=== PATIENT | female | born 1990 | race Caucasian/White ===

== ENCOUNTER 2025-03-28 05:52 | Observation (INO) | payer OTHER, SELFPAY ==
[2025-03-27 17:59] VITALS: BP 130/92
[2025-03-27 18:18] LABS: % Basophils 0.6 % (0-2); % Eosinophils 2.3 % (0-6); % Immature Granulocytes 0.1 % (0-0.5); % Lymphocytes 31.3 % (20.5-51.1); % Monocytes 6.6 % (1.7-9.3); % Neutrophils 59.1 % (42.2-75.2); Absolute Basophils 0.1 10^3/uL (0-0.2); Absolute Eosinophils 0.2 10^3/uL (0-0.7); Absolute Lymphocytes 2.5 10^3/uL (1.2-3.4); Absolute Monocytes 0.5 10^3/uL (0.1-0.6); Absolute Neutrophils 4.7 10^3/uL (1.4-6.5); Hemoglobin 13.6 g/dL (12.0-16.0); Mean Corp Hgb Conc. 34.9 g/dL (33.0-37.0); Mean Corpuscular Hgb 30.4 pg (27.0-31.0); Mean Corpuscular Volume 87.1 fL (81.0-99.0); Mean Platelet Volume 9.2 fL (7.4-10.4); Nucleated Red Blood Cells % 0 %; Platelet Count 291 10^3/uL (130-400); Red Blood Cell Count 4.48 10^6/uL (4.20-5.40); Red Cell Dist. Width 12.9 % (11.5-14.5)
[2025-03-27 18:36] LABS: HCG, Serum Qualitative Screen Negative
[2025-03-27 18:41] LABS: ALT (SGPT) 12 U/L (0-35); AST (SGOT) 24 U/L (14-36); Alkaline Phosphatase 32 U/L (38-126); Blood Urea Nitrogen 15 mg/dl (7-17); Calcium 9.5 mg/dl (8.4-10.2); Carbon Dioxide 24 mmol/L (22-30); Chloride 106 mmol/L (98-107); Glucose 105 mg/dl (70-99); Potassium 4.1 mmol/L (3.5-5.1); Sodium 138 mmol/L (135-145); Total Bilirubin 0.7 mg/dl (0.2-1.3); Total Protein 7.9 g/dl (6.3-8.2); eGFR > 60.00
[2025-03-27 19:10] LABS: TSH Reflex To Free T4 2.52 uIU/ml (0.47-4.68)
[2025-03-27 19:51] VITALS: BP 128/88
[2025-03-27 21:37] VITALS: BP 127/96
[2025-03-27 22:22] VITALS: BP 115/84
[2025-03-27] MEDS: NSS 1000 IV (23:59)
[2025-03-28] VITALS (15 sets, daily range): BP systolic 103–129; BP diastolic 76–96; PULSE 72–100; BMI 25.7
[2025-03-28 00:34] LABS: Urine Albumin Negative (Neg - Trace); Urine Bilirubin Negative (Negative); Urine Character Clear (Clear); Urine Color Yellow; Urine Glucose Negative (Negative); Urine Ketone Negative (Negative); Urine Leukocyte Negative (Negative); Urine Nitrite Negative (Negative); Urine Occult Blood 4+ (Negative); Urine Urobilinogen Negative (Neg - 1+)
[2025-03-28 00:46] LABS: Magnesium 2.3 mg/dl (1.6-2.3)
[2025-03-28 00:50] LABS: D-Dimer < 0.27 ug/mlFEU (0.00-0.50); Troponin I < 0.012 ng/ml
--- NOTE | 2025-03-28 03:42 | ED.GENMED ---
History of Present Illness
General
Chief Complaint: Weakness
Source: patient
Exam Limitations: none
Time Seen by Provider: 03/27/25 23:03
Nursing documentation reviewed up to this point in time: agreed with
History of Present Illness
History of Present Illness:
34-year-old female presenting to the emergency department today with concerns of nausea generalized weakness fatigue palpitations starting this morning progressing throughout the day especially worse with exertion and activity. Seems to improve
when sitting still.
Review of Systems
Review of Systems
Allergies reviewed?: Yes
All Other Systems: ROS reviewed and negative except as documented in HPI and ROS
Phy Exam
Physical Exam
Physical Exam:
GENERAL: Alert , in no apparent distress
EYE: pupils equal and reactive
NECK: Supple, no significant adenopathy.
ENT: o/p clr, mmm.
CARDIAC: Regular rate and rhythm .
LUNGS: Clear breath sounds bilaterally, no acute respiratory distress, no wheezes/rales/rhonchi
ABDOMEN: Soft, without focal tenderness, no r/g, no cvat
NEUROLOGICAL: Alert and oriented, no focal neuro deficits
SKIN: Warm and dry, skin intact.
MUSCULOSKELETAL: No edema, well perfused.
PSYCH: Normal and appropriate interaction.
Course
Orders/Labs/Results
Orders:
Orders
03/27/25 18:03
ECG [Electrocardiogram (*1)] Urgent
Reason for Study: Fatigue / Weakness
EKG- Treatment ONCE
Test Result ONCE
03/27/25 18:11
Complete Blood Count/With Diff Urgent
Comprehensive Metabolic Panel Urgent
HCG, Serum Qualitative Screen Urgent
TSH Reflex To Free T4 Urgent
03/27/25 23:31
0.9% Sodium Chloride 1000 ml [Nss] 1,000 ml IV BOLUS
03/27/25 23:39
D-Dimer Urgent
Magnesium Urgent
Troponin I Urgent
03/27/25 23:47
Urinalysis Reflex To Culture Urgent
Date Specimen was Collected: 03/27/25
Time Specimen was Collected: 23:35
Urine Microscopic Reflex Cult Urgent
03/28/25 00:00
CR Chest - 2 Views Urgent
Reason For Exam: ashley
03/28/25 03:42
Acetaminophen [Tylenol] 1,000 mg PO NOW STA
Abnormal Lab Results
03/27/25 03/27/25
18:11 23:47
Glucose 105 H mg/dl
(70-99)
Alkaline Phosphatase 32 L U/L
(38-126)
Ur Occult Blood Reflex 4+ A
(Negative)
Urine RBC 3-6 A /HPF
(0-2)
03/27/25 18:11
03/27/25 18:11
Vital Signs
Initial and Last Documented VS:
Initial Vital Signs
Temp Pulse Resp BP Pulse Ox
98.1 F 95 18 130/92 100
03/27/25 17:59 03/27/25 17:59 03/27/25 17:59 03/27/25 17:59 03/27/25 17:59
Last Documented Vital Signs
Temp Pulse Resp BP Pulse Ox
98.1 F 95 20 120/94 98
03/27/25 17:59 03/28/25 02:15 03/28/25 02:15 03/28/25 02:14 03/28/25 02:15
MDM/Problems Addressed
MDM/Problems Addressed:
34-year-old female presenting to the emergency department today with concerns of palpitations lightheadedness weakness worsening with exertion. Here initial vital signs normal patient no distress when walking heart rate increased into the 130s.
She claims that symptoms reproduce when exerting herself. Blood pressure remained stable during these events. Workup here otherwise was normal. She was advised initially for close outpatient follow-up with cardiology. She got up to get ready for
discharge started feeling very lightheaded again despite receiving a liter of fluid and resting here for multiple hours concern to admit for further monitoring and potential cardiology consultation.
*Critical Care Note
Total Time (30-74mins, 75-104mins- exclusive of procedures): Not Applicable
ED Attending Note
-
Portions of this chart may have been created with voice recognition software.� Occasional wrong word or��sound alike� substitutions may have occurred due to the inherent limitations of voice recognition software.
Discharge Plan
Departure
Patient Disposition: Admit
Date of Disposition: 03/28/25
Time of Disposition: 03:45
Admit to: Telemetry
Admit to doctor: Jaden
Presentation/result/management discussed w/ accepting MD/DO: Hospitalist
Patient with high blood pressure during this ER visit?: No
Condition: Good
Covid-19: Not Applicable
Discharge Problem:
Tachycardia
Prescriptions:
No Action
dextroamphetamine-amphetamine [Adderall] 10 mg Tablet
10 mg PO PRN PRN (Reason: for PMDD)
levothyroxine 75 mcg Tablet
75 mcg PO DAILY
Referrals:
Armida Brown MD [Family Provider, Internal Medicine]
Interventions
Interventions:
*Risk Screen - Suicide Last Done: 03/27/25 18:06
*General Assessment Last Done: 03/27/25 18:06
*Neglect/Abuse Screening Last Done: 03/27/25 23:04
*ED- Fall Risk Assessment Last Done: 03/27/25 23:04
*ED COVID-19 Vaccine History Last Done: 03/27/25 21:39
ED- Cardiac Assessment Last Done: 03/28/25 00:51
ED- Neurological Assessment Last Done: 03/27/25 21:38
ED- Pulmonary Assessment Last Done: 03/27/25 21:38
Discharge Date and Time
Print Language: TRINIDADIAN
[2025-03-28] MEDS: TYLENOL 1000 MG PO (03:47)
--- NOTE | 2025-03-28 05:38 | HPS.HSE ---
Family Physician
-
Family Physician: Armida Brown MD
Chief Complaint
-
Palpitations
History of Present Illness
Patient is a 34y F with PMH significant for hypothyroidism who presents to ED complaining of palpitations, chest tightness and diaphoresis. Patient states that she has been feeling well of late. No recent illness, known sick contacts, etc.
This AM she woke feeling somewhat nauseated. She ate some breakfast and chewed some antonia gum with improvement in her symptoms. She traveled to the beach today and went surfing. She noted feeling some chest tightness and SOB while carrying her
things across the beach - which is quite unusual for her. She went surfing today and following this felt her heart racing / pounding, felt diaphoretic and nauseated. She drove home but felt poorly the entire time. Once home she did not feel any
better. She was pushing fluids and eating throughout the day in an attempt to improve her symptoms - but with no results.
This evening, patient noted that she felt dizzy and had palpitations with any standing / activity. With these persistent symptoms, she presented to the ED for further evaluation.
Patient denies any prior history of similar symptoms.
She denies any recent medication changes / adjustments.
She takes Adderall as needed / infrequently and not every day. Not taken today.
Her LMP started today. She denies any heavy menses / unusual blood loss / etc.
In the ED, patient continues to have palpitations / tachycardia with exertion - with pulse increasing into the 130s / 140s with standing / ambulating.
Medical History
Past Medical History
Past Medical History: Reports Other
Additional Past Medical History:
Hypothyroidism
Past Surgical History: Reports None
Social History
Tobacco: Non-smoker
Alcohol: None
Drug: None
Family History
Family History: Other (MGF: CAD MGM: DM)
Allergies / Home Medications
Allergies reflects when Allergies were last updated in [facility].
Home Medications with original date entered in [facility]
Allergy/Medication List:
Allergies
Allergy/AdvReac Type Severity Reaction Status Date / Time
hydromorphone AdvReac Nausea / Verified 03/28/25 00:01
Vomiting
Home Medications
dextroamphetamine-amphetamine 10 mg tablet (Adderall) 10 mg PO PRN PRN for PMDD 03/28/25
levothyroxine 75 mcg tablet 75 mcg PO DAILY 03/28/25
Review of Systems
-
History Source: Patient
A 12 point ROS was completed and negative except as noted: Yes
Constitutional: Reports Fatigue; Denies Fever or Chills
EENT: Denies Sore Throat
Respiratory: Reports Trouble Breathing; Denies Cough
Cardiac: Reports Chest Pain, Diaphoresis and Palpitations
Abdomen/GI: Reports Nausea; Denies Abdominal Pain or Vomiting
: Denies Dysuria or Frequency
Musculoskeletal: Denies Joint Pain or Edema
Neurological: Reports Dizzy and Headache
Psych: Denies Depression or Anxiety
Physical Exam
Vital Signs
Vital Signs
Temp Pulse Resp BP Pulse Ox
98.1 F 95 20 120/94 98
03/27/25 17:59 03/28/25 02:15 03/28/25 02:15 03/28/25 02:14 03/28/25 02:15
Physical Exam
General: Other (34y F in no acute distress.)
HEENT: Moist mucous membranes and PERRLA
Respiratory: Clear; No Wheezes, Rales or Rhonchi
Cardiac: S1/S2 and Regular Rhythm; No Murmur
GI: Soft, Non Tender, Non Distended and Normal Bowel Sounds
Musculoskeletal: No Clubbing, No Cyanosis and No Edema
Neuro: AO x 3
Laboratory Results
-
03/27/25 18:11
03/27/25 18:11
Laboratory Results
Total Bilirubin 0.7 mg/dl (0.2-1.3) 03/27/25 18:11
AST 24 U/L (14-36) 03/27/25 18:11
ALT 12 U/L (0-35) 03/27/25 18:11
Alkaline Phosphatase 32 U/L (38-126) L 03/27/25 18:11
Troponin I < 0.012 ng/ml 03/27/25 23:39
Impression/Plan
-
A/P: Patient is a 34y F with no PMH significant for hypothyroidism who presents to ED complaining of palpitations, chest tightness and dyspnea today.
Palpitations
Chest Tightness / SOB
- Observe overnight for further evaluation and treatment.
- EKG is sinus rhythm with RBBB - no prior for comparison.
- No chronic history of similar symptoms to suggest autonomic disorder / POTS / etc.
- No recent volume losses.
- Monitor on tele overnight.
- Continue IVF replacement given tachycardia and lower BP.
- Follow orthostatic signs.
- Check Echo.
- Cardiology evaluation for additional recommendations.
- Monitor for any new / worsening symptoms.
Hypothyroidism
- Stable. TFTs checked in the ED and are normal.
- Continue current T4 replacement.
PMDD
- Stable. Takes Adderall PRN only - none taken x a few days now.
DVT Prophylaxis: SCDs
Code Status: Full
[2025-03-28] MEDS: SYNTHROID 75 MCG PO (07:38)
[2025-03-28] MEDS: LR 1000 IV (07:38)
--- NOTE | 2025-03-28 08:25 | CON.CAR ---
Addendum entered and electronically signed by Pramod Tello MD 03/28/25 08:38:
-Patient states that she takes Adderall PRN during PMS; last took 3 days ago.
Original Note:
Consultation
Consultation Request
Date/Time Consultation Requested: 03/28/2025
Date/Time Consultation Performed: 03/28/2025
Requesting Provider: Dr. Chino
Performing Provider: Dr. Tello
Reason for Consultation: Tachycardia/lightheadedness
Medical History
-
Chief Complaint: Lightheadedness/palpitations
History of Present Illness:
34-year-old female with hypothyroidism admitted with chest tightness, nauseousness, and palpitations while going surfing at a beach in [place] yesterday. She had felt unwell during the morning, but tried to eat and get through the day. She was
able to drive herself to the beach in [place] and after a few minutes in the water, decided to get out because she felt unwell. She was able to drive herself back home. She denies near-syncope or syncope. Prior to this, she has been feeling
well with no recent illnesses. She did mention that her period started yesterday and she sometimes has a various constellation of symptoms sometimes when it comes on. She is a non-smoker and she does not vape. She infrequently drinks alcohol, and
does not binge alcohol use. She denies any drug use.
Past Medical History
Past Medical History: Hypothyroidism
Past Surgical History: Other (Breast implants)
Social History
Tobacco: Non-Smoker
Alcohol: Occasional
Drug: None
Family History
Family History: CAD (Maternal grandfather)
Allergies / Home Medications
Allergy/AdvReac Type Severity Reaction Status Date / Time
hydromorphone AdvReac Nausea / Verified 03/28/25 00:01
Vomiting
�Medication �Instructions �Recorded �Confirmed �Type
dextroamphetamine-amphetamine 10 10 mg PO PRN PRN for PMDD 03/28/25 03/28/25 History
mg tablet (Adderall)
levothyroxine 75 mcg tablet 75 mcg PO DAILY 03/28/25 03/28/25 History
Review of Systems
-
History Source: Patient
All other systems: Negative unless noted
Cardiac: Palpitations
Abdomen/GI: Nausea
Physical Exam
Vital Signs
Temp Pulse Resp BP Pulse Ox
98.3 F 66 16 115/80 100
03/28/25 06:55 03/28/25 06:55 03/28/25 06:55 03/28/25 06:55 03/28/25 06:55
Lab Results
03/27/25 18:11
03/27/25 18:11
Troponin I < 0.012 ng/ml 03/27/25 23:39
Physical Exam
General: Well Developed, Well Nourished and No Apparent Distress
HEENT: Normocephalic
Respiratory: Clear
Cardiac: S1/S2 and Regular Rhythm
Breast: Deferred by me
GI: Soft
Rectal: Deferred by Provider
Musculoskeletal: No Clubbing, No Cyanosis and No Edema
Skin: Warm and Dry
Neuro: AO x 3
Psych: Calm
Impression / Plan
-
34-year-old female with hypothyroidism admitted with chest tightness, nauseousness, and palpitations while going surfing at a beach in [place] yesterday. She had felt unwell during the morning, but tried to eat and get through the day. She was
able to drive herself to the beach in [place] and after a few minutes in the water, decided to get out because she felt unwell. She was able to drive herself back home. She denies near-syncope or syncope. Prior to this, she has been feeling
well with no recent illnesses. She did mention that her period started yesterday and she sometimes has a various constellation of symptoms sometimes when it comes on. She is a non-smoker and she does not vape. She infrequently drinks alcohol, and
does not binge alcohol use. She denies any drug use.
Chest tightness/sinus tachycardia:
- Patient's symptoms may be related to onset of her menstruation.
- Sinus tachycardia to 120s noted on heart monitor.
- Will obtain an echocardiogram today to thoroughly assess baseline cardiac function; right bundle branch block noted on EKG (often benign).
- test is negative and TSH is within normal limits.
- If echocardiogram is unremarkable, patient can follow-up with Cardiology as an outpatient; will be determined at that time whether prolonged heart monitoring would be recommended if patient continues to have symptoms.
Hypothyroidism:
- TSH is within normal limits.
Data Reviewed
-
EKG: Report Reviewed by me (Sinus rhythm, RBBB)
Labs: Labs Reviewed by me
--- NOTE | 2025-03-28 09:42 | W.PN.HOSP.TC ---
Today's Communication/Plan
-
Ambulate and assess heart rate response
Echocardiogram
Assessment / Plan
Assessment / Plan
Gen-AAOx3, NAD
HEENT-NC, AT, anicteric, clear oral mm
Neck-supple
CV-reg, no M, +S1/S2
Lungs-clear B/L
Abd-soft, NT, ND
Ext-no edema
Musculoskeletal-no cyanosis, clubbing
Skin-warm and dry
Neuro-grossly non-focal
Psych-calm, cooperative
Tachycardia -resolved. Not orthostatic. Possibly due to volume depletion. She was nauseous yesterday morning and had loss of appetite. Suspect she was drinking less than usual.
Clinically doubt POTS syndrome. Ambulate today in the halls and assess heart rate response. Discussed with nursing.
Echocardiogram pending. Discussed with cardiology, can discharge today if echocardiogram unremarkable with outpatient follow-up recommended.
Hypothyroidism -TSH is normal. Continue levothyroxine.
Full code
Dispo -possible discharge today after echocardiogram. Outpatient follow-up.
Anticipated Discharge: Today
Subjective/Interval History
-
Date of Service: March 28, 2025
Patient seen and examined. Currently feels fine, no complaints.
Objective Data
-
Vital Signs:
Vital Signs
Temp Pulse Resp BP Pulse Ox
98.3 F 72 18 121/78 98
03/28/25 07:30 03/28/25 07:30 03/28/25 07:30 03/28/25 07:30 03/28/25 07:30
I&O
03/27/25 03/28/25 03/29/25
06:59 06:59 06:59
Intake Total 1000 / 1000
Balance 1000 / 1000
Review of Systems
-
History Source: Patient
All other systems: Reviewed and negative
[2025-03-28] MEDS: TYLENOL 650 MG PO (09:55)
--- NOTE | 2025-03-28 10:30 | PTCARENOTE ---
Ambulated with this RN. Her HR upon standing went as high as 110. While we walked her HR was between 90-100. We walked for about 100ft, retirement through our walk, she told me that her legs felt 'heavy' which is unusual for her. No dizziness or SOB
noted.
--- NOTE | 2025-03-28 12:12 | CM ---
Alert awake oriented patient who lives with Rusty and 13yo and 19 yo in a 2 story home with 13 step to enter and 10 steps to bed bathroom.She is independent in driving and in all activities of daily living.Offered VN she declined
need.Observation letter given explained.Pt signed Copy signed on chart.
No VN hx / No SNF history
Pharmacy [facility]
PCP DR Brown
PLAN Home Declined VN
--- NOTE | 2025-03-28 13:56 | W.DS.TRANS ---
DC Summary - [employer]
-
Discharge Instructions:
Discharge Diagnosis/Procedures Sinus tachycardia
Diet Regular
Activity As tolerated
Driving Restrictions As prior to admission
Bathing Restrictions None
Instructions:
Stand-Alone Forms:
Changes to Home Medications: No
Discharge Medications:
DC Medications w/original date entered in [employer]
dextroamphetamine-amphetamine 10 mg tablet (Adderall) 10 mg PO PRN PRN for PMDD 03/28/25
levothyroxine 75 mcg tablet 75 mcg PO DAILY 03/28/25
Home Medication Changes
Pending Results: No
== END 2025-03-28 15:29 | disposition home or self-care (01) ==
LOC: 4 EAST ACU 05:52
PROVIDERS: Emergency Medicine; Physician Assistant; ADMITTING PHYSICIAN Hospitalist; ATTENDING PHYSICIAN Hospitalist; CONSULT PHYSICIAN Internal Medicine; EMERGENCY PHYSICIAN Student in an Organized Health Care Education/Training Program; FAMILY PHYSICIAN Internal Medicine
DX: I49.8 Other specified cardiac arrhythmias (principal); R53.1 Weakness; R11.0 Nausea; R53.83 Other fatigue; R00.2 Palpitations; R06.09 Other forms of dyspnea; R42 Dizziness and giddiness; R07.89 Other chest pain; R06.02 Shortness of breath; F32.81 Premenstrual dysphoric disorder; I45.10 Unspecified right bundle-branch block; R61 Generalized hyperhidrosis; E03.9 Hypothyroidism, unspecified; Z83.3 Family history of diabetes mellitus; Z82.49 Family history of ischemic heart disease and other diseases of the circulatory system; Z88.5 Allergy status to narcotic agent; Z79.890 Hormone replacement therapy; Z98.82 Breast implant status; Z32.02 Encounter for pregnancy test, result negative
CPT/HCPCS: 71046; 80053; 81003; 81015; 83735; 84443; 84484; 84703; 85025; 85379; 93005; 93306; 96360; 99285; G0378